=== PATIENT | female | born 1935 | race Caucasian/White ===

== ENCOUNTER 2016-09-01 11:52 | Inpatient (IN) | payer OTHER ==
[~2016-09-01] VITALS: Ht 157.5 cm; Wt 62.0 kg
[~2016-09-01 11:52] MED LIST: CIPR500T4 PO; PHEN-538 PO
[2016-09-01] MEDS ORDERED: AZTREONAM 1 GM/NS (PMX) 50 ML IVPB STA (12:10)
[2016-09-01] MEDS ORDERED: SODIUM CHLORIDE 0.9% 1L BAG IV* STA (12:10)
[2016-09-01 12:15] VITALS: TEMP 98.6
[2016-09-01] MEDS ORDERED: VANCOMYCIN 1 GM (PMX) 250 ML IVPB ONE (12:30)
[2016-09-01] MEDS ORDERED: ACETAMINOPHEN 325 MG TAB PO ONE (12:30)
[2016-09-01 13:03] LABS: ADD SCAN DIFF NO
[2016-09-01 13:06] LABS: BASOPHILS % 0.2 % (0.0-2.0); EOSINOPHILS # 0.1 10^3/ul (0.0-0.5); EOSINOPHILS % 0.6 % (0.0-7.0); HEMATOCRIT 35.7 % (37.0-47.0); HEMOGLOBIN 11.6 g/dl (12.0-16.0); LYMPHOCYTES # 0.7 10^3/ul (0.8-2.9); LYMPHOCYTES % 5.1 % (15.0-51.0); MEAN CORPUSCULAR HEMOGLOBIN 28.6 pg (29.0-33.0); MEAN CORPUSCULAR HGB CONC 32.5 g/dl (32.0-37.0); MEAN CORPUSCULAR VOLUME 88.1 fl (82.0-101.0); MEAN PLATELET VOLUME 11.7 fl (7.4-10.4); MONOCYTE # 1.1 10^3/ul (0.3-0.9); MONOCYTES % 8.6 % (0.0-11.0); NEUTROPHIL # 10.7 10^3/ul (1.6-7.5); PLATELET COUNT 245 10^3/UL (140-415); RED BLOOD COUNT 4.05 10^6/ul (4.20-5.40); RED CELL DISTRIBUTION WIDTH 12.9 % (11.5-14.5); WHITE BLOOD COUNT 12.6 10^3/ul (4.8-10.8)
[2016-09-01 13:14] LABS: ALBUMIN 3.8 g/dl (3.3-4.9); CHLORIDE 101 mmol/L (97-110); INR 1.03; POTASSIUM 4.4 mmol/L (3.5-5.1); PROTIME 13.5 Sec (12.2-14.2); PT RATIO 1.1; SODIUM 139 mmol/L (135-144)
[2016-09-01 13:15] LABS: PARTIAL THROMBOPLASTIN TIME 27.8 Sec (25.0-35.0)
[2016-09-01 13:16] LABS: ANION GAP 18 (8-16); BILIRUBIN,INDIRECT 0.8 mg/dl (0-1.1); BILIRUBIN,TOTAL 0.8 mg/dl (0.2-1.3); CARBON DIOXIDE 24 mmol/L (21-31); CREATININE 2.14 mg/dl (0.44-1.00)
[2016-09-01 13:17] LABS: ALANINE AMINOTRANSFERASE 18 IU/L (13-69); ALBUMIN/GLOBULIN RATIO 1.22; ALKALINE PHOSPHATASE 96 IU/L (42-121); ASPARTATE AMINO TRANSFERASE 17 IU/L (15-46); BLOOD UREA NITROGEN 35 mg/dl (7-20); CALCIUM 9.2 mg/dl (8.4-10.2); GLUCOSE 132 mg/dl (70-220); TOTAL PROTEIN 6.9 g/dl (6.1-8.1)
[2016-09-01 13:29] LABS: TROPONIN-I < 0.012 ng/ml (0.00-0.12)
--- NOTE | 2016-09-01 13:49 | RADRPT ---
PROCEDURE: XR Chest. CLINICAL INDICATION: Chest pain. Sepsis. TECHNIQUE: Single frontal view. COMPARISON: None. FINDINGS: There is mild atelectasis at the lung bases. The lungs are otherwise clear. The heart size is normal. There is calcification in the aorta consistent with atherosclerosis. The re are sternal wires and mediastinal clips. There is no pleural effusion. There is no pneumothorax. IMPRESSION: 1. Mild atelectasis at the lung bases. 2. Atherosclerosis. 3. Previous median sternotomy. RPTAT: QQ .Korey Mcclendon MD, MD Date Time Electronically viewed and signed by .Korey Mcclendon MD, MD on 09/01/2016 13:48 .R/
[2016-09-01] MEDS ORDERED: ACETAMINOPHEN 325 MG TAB PO PRN ×2 (14:00→19:30)
[2016-09-01] MEDS ORDERED: ONDANSETRON 4 MG INJ IV PRN ×2 (14:00→19:30)
--- NOTE | 2016-09-01 14:58 | ERA ---
ER Documentation Chief Complaint Date/Time DATE: 09/01/16 TIME: 14:55 Chief Complaint FEVER, COUGH, CHEST PAIN WITH COUGHING, HIGH BP AT HOME HPI Patient is a 81-year-old female with coronary disease, hypertension, and diabetes who presents with fever. The patient 2 weeks ago had a "cold and flu" per the daughter and also had a cough. For 2 days now she has had a cough, shortness of breath, and fever. She was shaking all over. She finished "antibiotics" yesterday for a urinary tract infection but the daughter does not know what antibiotic. The patient does live in [place] where her doctor is. Upon review of old medical records the patient one previous visit to the ER in October 2015. ROS All systems reviewed and are negative except as per history of present illness. Medications Home Meds Active Scripts Phenazopyridine Hcl* (Pyridium*) 200 Mg Tab, 200 MG PO TID Y for URINARY PAIN, # 6 TAB Prov:JEANINE MARTÍNEZ MD 11/10/15 Ciprofloxacin Hcl* (Ciprofloxacin Hcl*) 500 Mg Tablet, 500 MG PO BID for 10 Days , TAB Prov:JEANINE MARTÍNEZ MD 11/10/15 Allergies Allergies: Coded Allergies: No Known Allergy (Unverified , 11/10/15) PMhx/Soc Anesthesia Reaction: No Hx Neurological Disorder: No Hx Respiratory Disorders: No Hx Cardiac Disorders: Yes (HTN, HYPERLIPIDEMIA ) Hx Psychiatric Problems: No Hx Miscellaneous Medical Probl: No Hx Alcohol Use: No Hx Substance Use: No Hx Tobacco Use: No Smoking Status: Never smoker FmHx Family History: No diabetes Physical Exam Vitals Vital Signs Date Time Temp Pulse Resp B/P Pulse Ox O2 Delivery O2 Flow Rate FiO2 09/01/16 12:15 98.6 66 25 110/53 92 Room Air 09/01/16 11:57 101.3 67 20 131/62 95 Physical Exam Const: No acute distress Head: Atraumatic Eyes: Normal Conjunctiva ENT: Normal External Ears, Nose and Mouth. Neck: Full range of motion..~ No meningismus. Resp: Clear to auscultation bilaterally Cardio: Regular rate and rhythm, no murmurs Abd: Soft, non tender, non distended. Normal bowel sounds Skin: No petechiae or rashes Back: No midline or flank tenderness Ext: No cyanosis, or edema Neur: Awake and alert Psych: Normal Mood and Affect Result Diagram: 09/01/16 1235 09/01/16 1235 Results 24 hrs Laboratory Tests Test 09/01/16 12:14 09/01/16 12:35 Bedside Glucose 132mg/dL Activated Partial Thromboplast Time 27.8Sec Alanine Aminotransferase (ALT/SGPT) 18IU/L Albumin 3.8g/dl Albumin/Globulin Ratio 1.22 Alkaline Phosphatase 96IU/L Anion Gap 18 Aspartate Amino Transf (AST/SGOT) 17IU/L Basophils # 0.010^3/ul Basophils % 0.2% Blood Urea Nitrogen 35mg/dl Calcium Level 9.2mg/dl Carbon Dioxide Level 24mmol/L Chloride Level 101mmol/L Creatinine 2.14mg/dl Direct Bilirubin 0.00mg/dl Eosinophils # 0.110^3/ul Eosinophils % 0.6% Globulin 3.10g/dl Glucose Level 132mg/dl Hematocrit 35.7% Hemoglobin 11.6g/dl INR International Normalized Ratio 1.03 Indirect Bilirubin 0.8mg/dl Lactic Acid Level 1.4mmol/L Lymphocytes # 0.710^3/ul Lymphocytes % 5.1% Mean Corpuscular Hemoglobin 28.6pg Mean Corpuscular Hemoglobin Concent 32.5g/dl Mean Corpuscular Volume 88.1fl Mean Platelet Volume 11.7fl Monocytes # 1.110^3/ul Monocytes % 8.6% Neutrophils # 10.710^3/ul Neutrophils % 85.0% Nucleated Red Blood Cells # 0.010^3/ul Nucleated Red Blood Cells % 0.0/100WBC Platelet Count 49694^3/UL Potassium Level 4.4mmol/L Prothrombin Time 13.5Sec Prothrombin Time Ratio 1.1 Red Blood Count 4.0510^6/ul Red Cell Distribution Width 12.9% Sodium Level 139mmol/L Total Bilirubin 0.8mg/dl Total Protein 6.9g/dl Troponin I < 0.012ng/ml White Blood Count 12.610^3/ul Current Medications Medications (Trade) Dose Ordered Sig/Shaka Route PRN Reason Start Time Stop Time Status Last Admin Dose Admin Sodium Chloride 1740 ml 1,740 ml BOLUS OVER 2 HOURS STAT IV* 09/01/16 12:10 09/01/16 12:12 DC 09/01/16 13:11 Vancomycin HCl 250 ml @ 125 mls/hr ONCE ONCE IVPB 09/01/16 12:30 09/01/16 14:29 DC 09/01/16 13:11 Aztreonam (Azactam 1gm/NS (Pmx)) 50 ml @ 100 mls/hr ONCE STAT IVPB 09/01/16 12:10 09/01/16 12:39 DC Acetaminophen (Tylenol Tab) 650 mg ONCE ONCE PO 09/01/16 12:30 09/01/16 12:31 DC 09/01/16 13:10 Ondansetron HCl (Zofran Inj) 4 mg BRIDGE ORDER PRN IV NAUSEA AND/OR VOMITING 09/01/16 14:00 09/02/16 13:59 Acetaminophen (Tylenol Tab) 650 mg ER BRIDGE PRN PO MILD PAIN/FEVER 09/01/16 14:00 09/02/16 13:59 Procedures/MDM EKG read by me: Rate/Rhythm: Regular rate and rhythm at a normal rate Intervals: Normal Impression: No evidence of ischemia or arrhythmia Chest X-ray 1V Interpreted by me: Soft Tissue: No acute abnormalities Bones: No acute abnormalities Mediastinum/Cardiac Silhouette/Lungs: No acute abnormalities Patient is a 81-year-old female who presents with what appears to be acute cystitis which is failed outpatient treatment. She has a fever and just finished antibiotics yesterday. Chest x-ray shows no obvious pneumonia. She has an elevated white blood cell count of 12.6. She has anemia with a hemoglobin of 11.6 but does not require transfusion at this time. A larger concern is that her creatinine has increased from 1.3-2.14 since her previous visit in October 2015. At this point I doubt sepsis however. The patient was given broad-spectrum antibiotics with vancomycin and aztreonam as her daughter says that she has an allergy to penicillin. The patient will be admitted to a medical surgical bed under the care of Dr. Reyes from the panel team as her primary doctor is in [place] and she has never been admitted before. Departure Diagnosis: Primary Impression: ARF (acute renal failure) Qualified Code: N17.9 - Acute renal failure, unspecified acute renal failure type Additional Impressions: UTI (urinary tract infection) Qualified Code: N30.01 - Acute cystitis with hematuria Dehydration Anemia Qualified Code: D64.9 - Anemia, unspecified type Leukocytosis Qualified Code: D72.829 - Leukocytosis, unspecified type Condition: TABATHA Marino MD Sep 01, 2016 14:58
[2016-09-01] MEDS ORDERED: HYDR-3671 PO (15:51)
[2016-09-01] MEDS ORDERED: PRAV20TA63 PO (15:52)
[2016-09-01] MEDS ORDERED: CARV12.579 PO (15:52)
[2016-09-01] MEDS ORDERED: ISOS20TA19 PO (15:52)
[2016-09-01] MEDS ORDERED: CYAN100074 PO (15:53)
[2016-09-01] MEDS ORDERED: CLOP75TA27 PO (15:54)
[2016-09-01] MEDS ORDERED: LOSA50TA6 PO (15:54)
[2016-09-01] MEDS ORDERED: GLYB1TAB3 PO (15:54)
[2016-09-01] MEDS ORDERED: NITR0.4T6 SL (15:55)
[2016-09-01] MEDS ORDERED: ESCI10TA PO (15:55)
[2016-09-01 16:46] LABS: ADD UMIC YES; URINE BILIRUBIN (Dip) 1+ (NEGATIVE); URINE BLOOD (Dip) 1+ (NEGATIVE); URINE COLOR DK. YELLOW (YELLOW); URINE GLUCOSE (Dip) NEGATIVE (NEGATIVE); URINE KETONES (Dip) TRACE (NEGATIVE); URINE LEUKOCYTE ESTERASE (Dip) 3+ (NEGATIVE); URINE NITRITE (Dip) POSITIVE (NEGATIVE); URINE TOTAL PROTEIN (Dip) 2+ (NEGATIVE); URINE UROBILINOGEN (Dip) 1.0 E.U./dL (0.1-1.0)
[2016-09-01 16:53] LABS: ICTOTEST NEGATIVE (NEGATIVE)
[2016-09-01 16:55] LABS: SQUAMOUS EPITHELIAL CELL,UR MANY
[2016-09-01 16:56] LABS: BACTERIA,URINE MANY
[2016-09-01 18:06] VITALS: BP 106/55; RESP 18
[2016-09-01 19:17] VITALS: Ht 157.5 cm; Wt 62.0 kg
[2016-09-01 20:00] VITALS: BP 116/60; RESP 18
[2016-09-01] MEDS ORDERED: FAMOTIDINE 20 MG TAB PO SCH (21:00)
[2016-09-01] MEDS ORDERED: NON-FORMULARY/PATIENT OWN MED (Pravastatin Sodium* 20 MG) PO SCH (21:00)
[2016-09-01] MEDS: DOCUSATE SODIUM 100 MG CAP PO SCH (21:49)
[2016-09-01] MEDS: ATORVASTATIN 10 MG TAB PO SCH (21:49)
[2016-09-01] MEDS: SOD CHLORIDE 0.9% 1,000 ML IV SCH (21:50)
[2016-09-01] MEDS: PIPER-TAZO 2.25 GM (PMX) 50 ML IVPB SCH (21:50)
[2016-09-02] MEDS: SOD CHLORIDE 0.9% 1,000 ML IV SCH ×2 (03:30→05:38)
[2016-09-02] MEDS: PIPER-TAZO 2.25 GM (PMX) 50 ML IVPB SCH ×3 (05:37→21:16)
[2016-09-02 05:57] LABS: IRON 13 ug/dl (35-150)
[2016-09-02 06:06] LABS: TOTAL IRON BINDING CAPACITY 229 ug/dl (241-421)
--- NOTE | 2016-09-02 06:54 | HP ---
DATE OF ADMISSION: 09/01/2016 PRESENTING COMPLAINT: Fever. HISTORY OF PRESENTING COMPLAINT: I don't have much in terms of history because the patient is not a good historian, and so my history is from the patient as well as reviewing emergency room doctor's notes. She was brought into our emergency room today by her daughter with complaints of fever and p robable dysuria. She has a history of coronary artery disease, hypertension and diabetes, and for t he last couple of weeks, she has had a cough and fever, and she has been on antibiotics, which we ar e not sure which one it is, and this was completed about yesterday. However, the patient's fever re curred today, and so her daughter brought her in to be checked. In the emergency room, her urinalys is is strongly suggestive of a urinary tract infection, and her indices are supportive a of mild sep sis, and considering that the patient just completed a course of antibiotics, she was deemed to have failed outpatient therapy, and she is being admitted for inpatient management. PAST MEDICAL HISTORY: 1. Coronary artery disease, status post CABG. 2. Hypertension. 3. Diabetes mellitus type 2 per report. MEDICATIONS: However, home medications are only for antibiotics and Pyridium. A full medication li st is not available. ALLERGIES: NO KNOWN DRUG ALLERGIES. REVIEW OF SYSTEMS: I did 12-point review of systems, and the patient denies pain in the chest and p ain in the abdomen. She also denies back pain. She does endorse fever and chills though. There jj s been poor appetite and what sounds like nausea but no vomiting. No passing out episodes. No foca l extremity weakness. No syncopal episodes as well. FAMILY HISTORY: Noncontributory. PHYSICAL EXAMINATION: VITAL SIGNS: Temperature maximum 101.3, pulse ____, respirations 25, blood pressure 110/53, saturat ions 92% on room air. GENERAL: Elderly female, comfortable at the time of my review. No distress. HEENT: Head was normocephalic. Pupils were equal, round and reactive. Mucous membranes were moist . Posterior pharynx was clear of exudate. NECK: Supple, nontender. CHEST: Clear to auscultation, maybe mildly reduced in the bases. CARDIOVASCULAR: Heart sounds were S1 and S2 and mildly tachycardic but without murmurs. ABDOMEN: Soft, nontender with normoactive bowel sounds and no costovertebral angle tenderness. EXTREMITIES: Lower extremities were negative for edema. SKIN: Devoid of rash or jaundice. LABORATORY VALUES: Her CBC showed a leukocytosis of 12,000. Her hemoglobin was low at 11. Her rita telet count was normal. BUN 35, creatinine 2.14. Of note is that this patient was seen in this [facility] about a year ago, and at that time creatinine was 1.1, I believe. Serum glucose is normal, an d lactic acid was normal at 1.4. Troponin was negative. IMAGING STUDIES: Her chest x-ray was unremarkable. EKG just showed sinus tachycardia. As mentioned earlier, urinalysis was highly suggestive of a urinary tract infection. In the ER, she was given vancomycin, aztreonam, Tylenol, Zofran and IV fluid. ASSESSMENT: 1. Acute urinary tract infection that has failed outpatient therapy, causing #2. 2. Mild sepsis. 3. Acute renal insufficiency, rule out chronic kidney disease, rule out ____ pathology, ____ recurr ent urinary tract infection with ____. Please note that patient was ____ this facility ____ urinary tract infection at that time, and per report, the daughter says she has recurrent urinary tract inf ection. 4. Mild dehydration which could be causing renal insufficiency. 5. Chronic anemia. PLAN: I'm going to admit the patient for IV antibiotics and blood as well as urine cultures. Will provide p.r.n. antipyretics, antiemetics and pain medications as indicated. I think this patient wi ll benefit from a CAT scan of the abdomen just to evaluate her kidneys, bladder and urinary tract sy stem to ensure there is no occult pathology causing her recurrent UTIs. In the interim, I will star t her on broad-spectrum antibiotics, gently hydrate her and see what her renal function does in the next couple of days. If there is not any improvement, she may benefit from nephrology consultation. However, I will hold off for now. Further intervention will depend on her clinical course. For p rophylaxis, she will be on Pepcid and SCDs. Evaluation time has been about 40 minutes. Dictated By: RACHANA CARRASQUILLO MD, BA/ADRIANNA Conf#: [id number] DID#: [id number]
[2016-09-02 07:42] VITALS: BP 134/61; RESP 18
[2016-09-02] MEDS: CLOPIDOGREL 75 MG TAB PO SCH (08:33)
[2016-09-02] MEDS: DOCUSATE SODIUM 100 MG CAP PO SCH ×2 (08:33→21:15)
[2016-09-02] MEDS: FAMOTIDINE 20 MG TAB PO SCH (08:33)
[2016-09-02] MEDS: ESCITALOPRAM 10 MG TAB PO SCH (08:33)
[2016-09-02] MEDS: ASPIRIN (EC) 81 MG TAB PO SCH (08:33)
--- NOTE | 2016-09-02 13:46 | RADRPT ---
PROCEDURE: CT Abdomen and Pelvis without contrast. CLINICAL INDICATION: Recurrent cystitis. TECHNIQUE: Multiple contiguous axial CT images of the abdomen and pelvis were obtained without the administration of intravenous contrast. Coronal and sagittal reconstructions were also performed. CTDIvol (mGy): 8.85; Total Exam DLP (mGy-cm): 487.41. One or more of the following dose reduction techniques were utilized: - Automated exposure control. - Adjustment of the mA and/or kV according to patient size. - Use of iterative reconstruction technique. COMPARISON: None. FINDINGS: Limited imaging of the lower thorax demonstrates cardiomegaly and a trace right pleural effusion. T here is a 7 mm noncalcified nodule of the left lower lobe. The liver and spleen are homogeneous in density. The gallbladder, pancreas and adrenal glands are u nremarkable. The kidneys are symmetric in size. There is an 8-9 mm stone of the lower pole of the right kidney wi th density of approximately 600 HU. There is a 7 x 3 mm stone of the left ureterovesical junction w ith moderate hydronephrosis and hydroureter. There is also moderate left perinephric edema. There is a tiny punctate 1 mm stone which layers dependently within the distal ureter. Scattered few ree tional punctate stones are seen within the bilateral renal pelves. The abdominal aorta is normal in caliber. Atherosclerotic calcification is present. There is no per iaortic / retroperitoneal lymphadenopathy. The stomach and small and large intestines are unremarkable. The appendix is not visualized. There are no focal inflammatory changes of the mesentery. There is no mesenteric lymphadenopathy. There is no ascites. The bladder, uterus and adnexa are unremarkable. There is no free pelvic fluid. There is no pelvic sidewall or inguinal lymphadenopathy. Bony mineralization is decreased. The density of the L1 vertebral body is approximately 40 HU. Dege nerative changes are seen throughout the spine. Moderate severe bilateral osteoarthritis of the hip joints is also observed. Body wall soft tissues are unremarkable. IMPRESSION: Moderate left hydronephrosis and hydroureter with moderate perinephric edema as a result of a left u reterovesical junction stone. Bilateral nephrolithiasis. Small pulmonary nodule of the left lower lobe. Follow-up CT chest may be obtained in 6 months. Low bone density with multilevel degenerative disk disease. Moderate severe bilateral hip osteoarthritis. RPTAT: HLST .Corrine Miller MD, MD Date Time Electronically viewed and signed by .Corrine Miller MD, on 09/02/2016 13:45 .T/
--- NOTE | 2016-09-02 18:30 | PN ---
Date/Time of Note Date/Time of Note DATE: 09/02/16 TIME: 18:25 Assessment/Plan VTE Prophylaxis VTE Prophylaxis Intervention: ambulation Lines/Catheters IV Catheter Type (from Nrs): Peripheral IV Urinary Cath still in place: No Assessment/Plan Chief Complaint/Hosp Course 1. Sepsis secondary to UTI Continue IV antibiotics Follow up on urine culture 2. Acute kidney injury secondary to sepsis and dehydration Continue IV fluids and antibiotics, if renal function does not improve in a.m. we will get a nephrology consultation 3. Anemia of chronic disease Monitor Prophylaxis: Ambulation Problems: Subjective 24 Hr Interval Summary Constitutional: no complaints Exam/Review of Systems Vital Signs Vitals Vital Signs Date Time Temp Pulse Resp B/P Pulse Ox O2 Delivery O2 Flow Rate FiO2 09/02/16 07:42 98.4 61 18 134/61 95 09/01/16 17:03 Room Air Intake and Output 09/01/16 09/01/16 09/02/16 15:00 23:00 07:00 Intake Total 50 ml 1630 ml Balance 50 ml 1630 ml Exam Constitutional: alert Respiratory: clear to auscultation Cardiovascular: regular rate and rhythm Gastrointestinal: soft, No distended Musculoskeletal: nl extremities to inspection Results Result Diagram: 09/01/16 1235 09/01/16 1235 Results 24 hrs Laboratory Tests Test 09/01/16 20:27 09/02/16 05:06 Lactic Acid Level 0.6 Iron Level 13 L Percent Iron Saturation 6 L Total Iron Binding Capacity 229 L Medications Medications Current Medications Piperacillin Sod/ Tazobactam Sod (Zosyn 2.25gm/ 50ml (Pmx)) 50 ml @ 100 mls/hr Q8 IVPB Last administered on 09/02/16 13:16; Admin Dose 100 MLS/HR; Start 06/08 at 22:00 Ondansetron HCl (Zofran Inj) 4 mg Q6H PRN IV NAUSEA AND/OR VOMITING; Start 06/08 at 19:30 Acetaminophen (Tylenol Tab) 650 mg Q6H PRN PO PAIN AND OR ELEVATED TEMP; Start 09/01/16 at 19:30 Docusate Sodium (Colace) 100 mg BID PO Last administered on 09/02/16 08:33; Admin Dose 100 MG; Start 09/01/16 at 21:00 Clopidogrel Bisulfate (plaVIX) 75 mg DAILY PO Last administered on 09/02/16 08 :33; Admin Dose 75 MG; Start 09/02/16 at 09:00 Escitalopram Oxalate (Lexapro) 10 mg DAILY PO Last administered on 09/02/16 08 :33; Admin Dose 10 MG; Start 09/02/16 at 09:00 Aspirin (Halfprin) 81 mg DAILY PO Last administered on 09/02/16 08:33; Admin Dose 81 MG; Start 09/02/16 at 09:00 Carvedilol (Coreg) 6.25 mg BID PO Last administered on 09/02/16 08:33; Admin Dose 6.25 MG; Start 09/01/16 at 21:00 Atorvastatin Calcium (Lipitor) 10 mg DAILY@21 PO Last administered on 21:49; Admin Dose 10 MG; Start 09/01/16 at 21:00 Famotidine (Pepcid) 20 mg DAILY PO Last administered on 09/02/16 08:33; Admin Dose 20 MG; Start 09/02/16 at 09:00 JANEEN BAKER 13, 2017 18:30
[2016-09-02 20:20] VITALS: BP 162/67; RESP 18
[2016-09-02] MEDS: ATORVASTATIN 10 MG TAB PO SCH (21:15)
[2016-09-02] MEDS ORDERED: ZOLPIDEM 5 MG TAB PO PRN (21:30)
[2016-09-02 22:00] VITALS: BP 136/60; PULSE 68
[2016-09-03] MEDS: PIPER-TAZO 2.25 GM (PMX) 50 ML IVPB SCH ×2 (05:30→14:06)
[2016-09-03 05:50] LABS: ADD SCAN DIFF NO
[2016-09-03 05:55] LABS: BASOPHILS % 0.5 % (0.0-2.0); EOSINOPHILS # 0.3 10^3/ul (0.0-0.5); EOSINOPHILS % 4.1 % (0.0-7.0); HEMATOCRIT 31.3 % (37.0-47.0); LYMPHOCYTES # 1.2 10^3/ul (0.8-2.9); LYMPHOCYTES % 17.5 % (15.0-51.0); MEAN CORPUSCULAR HEMOGLOBIN 28.3 pg (29.0-33.0); MEAN CORPUSCULAR HGB CONC 31.9 g/dl (32.0-37.0); MEAN CORPUSCULAR VOLUME 88.7 fl (82.0-101.0); MEAN PLATELET VOLUME 11.9 fl (7.4-10.4); MONOCYTE # 0.9 10^3/ul (0.3-0.9); MONOCYTES % 13.6 % (0.0-11.0); NEUTROPHIL # 4.2 10^3/ul (1.6-7.5); NEUTROPHILS % 63.8 % (39.0-77.0); PLATELET COUNT 208 10^3/UL (140-415); RED BLOOD COUNT 3.53 10^6/ul (4.20-5.40); RED CELL DISTRIBUTION WIDTH 13.2 % (11.5-14.5); WHITE BLOOD COUNT 6.6 10^3/ul (4.8-10.8)
[2016-09-03 06:13] LABS: POTASSIUM 4.6 mmol/L (3.5-5.1)
[2016-09-03 06:16] LABS: CALCIUM 8.4 mg/dl (8.4-10.2); CREATININE 1.22 mg/dl (0.44-1.00)
[2016-09-03 06:17] LABS: MAGNESIUM 1.8 mg/dl (1.7-2.5)
[2016-09-03 07:55] VITALS: BP 158/67; RESP 18
[2016-09-03] MEDS: ASPIRIN (EC) 81 MG TAB PO SCH (08:29)
[2016-09-03] MEDS: DOCUSATE SODIUM 100 MG CAP PO SCH (08:29)
[2016-09-03] MEDS: FAMOTIDINE 20 MG TAB PO SCH (08:30)
[2016-09-03] MEDS: ESCITALOPRAM 10 MG TAB PO SCH (08:30)
[2016-09-03] MEDS: CLOPIDOGREL 75 MG TAB PO SCH (08:30)
--- NOTE | 2016-09-03 10:51 | PDOCDIS ---
Discharge Instructions CONDITION Patient Condition: Good HOME CARE INSTRUCTIONS: Diet Instructions: Regular ACTIVITY: Activity Restrictions: No Restrictions FOLLOW UP/APPOINTMENTS Appointments F/U WITH YOUR PCP IN 1-2 WEEKS JANEEN BAKER Sep 03, 2016 10:51
[2016-09-03] MEDS ORDERED: CEPH500C PO ×2 (12:47→14:27)
--- NOTE | 2016-09-03 14:17 | CONS ---
DATE OF ADMISSION: 09/01/2016 DATE OF CONSULTATION: 09/03/2016 REQUESTING PHYSICIAN: Dr. Gilbert Dear Dr. Gilbert: Thank you for asking me to see this patient in any urological consultation. HISTORY OF PRESENT ILLNESS: She is a 81-year-old [place] female who is initially from [facility] visiting her family here, who was brought to the emergency room complaining of fever and dysuria . She had a CT scan of the abdomen and pelvis and that showed a stone at the left ureterovesical ju nction with left hydroureteronephrosis. The patient states and her great granddaughter was translat ing that about 2 months ago she was told that she has a kidney stone that she passed. Most likely t hat was the same stone and at that time, she was in [place] and I do not know what kind of studies th zina did. They did an ultrasound, probably did not see any stone in the left side; however, they did a CAT scan, then one could see the stone at that time. In any case, she does have a distal left ure teral stone at the ureterovesical junction. PAST MEDICAL HISTORY: Includes a history of coronary artery disease. She is status post coronary artery bypass graft, history of hypertension, diabetes mellitus type 2. ADDITIONAL PAST SURGICAL HISTORY: Includes appendectomy and hysterectomy. She is a 4, para 4. ALLERGIES: THE PATIENT HAS NO KNOWN DRUG ALLERGIES. REVIEW OF SYSTEMS: Otherwise is unremarkable except for what is mentioned in the present history. MEDICATIONS: That she is on include: 1. Plavix. 2. Lexapro. 3. Aspirin. 4. Pepcid. 5. Zosyn. 6. Colace. 7. Coreg. 8. Lipitor. 9. Zofran. 10. Tylenol. PHYSICAL EXAMINATION: GENERAL: Reveals an elderly female. She weighs about 62 kilograms. She is 62 inches tall. She is afebrile. VITAL SIGNS: Temperature is 98.8, pulse is 56, respiration 18, blood pressure 158/67. The patient does have a scar on her chest from the open heart surgery. The neck is supple. There is no flank t enderness. ABDOMEN: Soft. There is a scar in the low midline from a hysterectomy and right lower quadrant fro m appendectomy. PELVIC: Revealed atrophic vaginitis, but there was no pain. LABORATORY DATA: Her CBC on admission showed a white count of 12.6, now it is 6.6; hemoglobin 11.6, now it is 10.0. The BUN is 20, creatinine 1.22. The creatinine on admission was 2.14, BUN was 35. The urinalysis showed 3+ leukocyte esterase, many bacteria and over 200 white cells. The urine cu lture showed E. coli and yeast. The E. coli is sensitive to nitrofurantoin and resistant to Cipro a nd resistant to Levaquin. It is sensitive to cefazolin. The CT scan of the abdomen and pelvis again was reported as moderate left hydronephrosis and hydrour eter, and that is because of a 7 x 3 mm stone at the left ureterovesical junction. She also does jj ve a stone, 8 to 9 mm, in the lower pole of the right kidney which is asymptomatic. The patient has small pulmonary nodules in the left lower lobe and was suggested to have a CT scan of the chest in about 6 months and bilateral hip osteoarthritis. IMPRESSION: Distal left ureteral stone, 7 x 3 mm at the ureterovesical junction. This stone is lincoln ost into her bladder and the patient does have a UTI. Her white count today is normal. Therefore, she should be able hopefully to pass that stone. Therefore, the recommendation would be to put her on Flomax and cover her with antibiotic based on the urine culture sensitivity and instruct her to strain her urine and also if she had fever or chills, to come back to the hospital. Dictated By: JENISE PRIEST MD BB/NTS Conf#: [id number] DID#: [id number] CC: JANEEN GILBERT MD; RACHANA CARRASQUILLO MD;*End*
[2016-09-03] MEDS ORDERED: TAMS-14 PO (14:53)
--- NOTE | 2016-09-04 21:18 | DS ---
DATE OF ADMISSION: 09/01/2016 DATE OF DISCHARGE: 09/03/2016 DISCHARGE DIAGNOSES: 1. Sepsis secondary to urinary tract infection secondary to Escherichia coli organism, now resolved . Etiology is secondary to nephrolithiasis. 2. Nephrolithiasis. The patient was evaluated by urology. Patient was found to have a distal left ureteral stone at the ureterovesical junction as noted on CT. It was felt that the patient likely passed the stone. No further interventions were recommended. 3. Acute kidney injury secondary to sepsis and dehydration, resolved. 4. Anemia of chronic disease, stable. HOSPITAL COURSE: The patient is a 81-year-old female with a history of coronary artery disease, sta tus post CABG in the past, hypertension, diabetes, persistent left side groin pain. The patient pre sents with sepsis as well as acute kidney injury. She did have a UA to suggest UTI. Urine culture showed E. coli that was resistant to Cipro and Levaquin. The patient did have a CT abdomen that gideon wed a left ureteral stone at the ureterovesical junction. The stone was also in her bladder. It wa s felt by urology that the patient would likely pass the stone. Therefore, recommendation per urolo gy was to put her on Flomax, continue antibiotics and to strain the urine. If she has persistent pa in, she can return to the hospital, follow up with urologist as an outpatient. The patient's sepsis did resolve. Her kidney went back to baseline after IV fluids. She was felt be stable for dischar ge. On the day of discharge, the patient's vitals, labs, and physical exam were stable. She had no acute complaints and questions were answered. CONDITION ON DISCHARGE: Stable. DISPOSITION: To home. MEDICATIONS: Patient is to continue her usual home medications and was also given a prescription fo r Keflex 500 mg p.o. b.i.d. for 7 days and Flomax 0.4 mg p.o. at bedtime. FOLLOWUP: The patient is to follow up with her PCP in 1 to 2 weeks. Dictated By: JANEEN BAKER MD BS/NTS Conf#: [id number] DID#: [id number]
== END 2016-09-03 15:05 | disposition home or self-care (01) | DRG 872 ==
LOC: E/R 11:52 → MS2 13:43
PROVIDERS: ADMIT Family Medicine; ATTEND Family Medicine
DX: A41.9 Sepsis, unspecified organism (principal); N17.9 Acute kidney failure, unspecified; N13.30 Unspecified hydronephrosis; E11.9 Type 2 diabetes mellitus without complications; E86.0 Dehydration; N30.01 Acute cystitis with hematuria; B96.20 Unspecified Escherichia coli [E. coli] as the cause of diseases classified elsewhere; D63.8 Anemia in other chronic diseases classified elsewhere; N20.0 Calculus of kidney; I25.10 Atherosclerotic heart disease of native coronary artery without angina pectoris; Z95.1 Presence of aortocoronary bypass graft; Z79.02 Long term (current) use of antithrombotics/antiplatelets; Z79.84 Long term (current) use of oral hypoglycemic drugs
CPT/HCPCS: 36415; 71010; 74176; 80048; 80053; 81001; 81003; 82962; 83036; 83540; 83605; 83735; 84484; 85025; 85610; 85730; 87040; 87086; 87400; 93005; 96374; 96375; J2543; J3370; J7030